=== PATIENT | male | born 1995 | race Hispanic/Latino ===

== ENCOUNTER 2018-12-30 11:46 | Emergency (ER) | payer SELFPAY ==
[2018-12-30] MEDS ORDERED: LORAZEPAM 1 MG TABLET ONE (12:29)
[2018-12-30 12:40] LABS: Absolute Lymphocytes (CBC) 1.9 K/uL (0.7-4.9); Absolute Monocytes 0.8 K/uL (0.1-1.3); Basophils % 0.4 % (0-1.3); Eosinophils % 0.3 % (0-4.4); Lymphocytes % 19.6 % (15.3-44.8); MPV 7.9 fL (7.6-11.3); Monocytes % 8.1 % (3.3-12.3); RBC Red Blood Cell Count 5.08 M/uL (4.33-5.43)
[2018-12-30 12:55] LABS: ALT/SGPT 35 U/L (12-78); AST/SGOT 24 U/L (15-37); Alkaline Phosphatase 107 U/L (45-117); BUN Blood Urea Nitrogen 19 mg/dL (7-18); Bicarbonate 29 mmol/L (21-32); Bilirubin Direct 0.2 mg/dL (0-0.2); Bilirubin Total 0.6 mg/dL (0.2-1.0); Glucose Level 108 mg/dL (74-106); Potassium 3.6 mmol/L (3.5-5.1); Protein, Total 7.8 g/dL (6.4-8.2); Sodium Level 142 mmol/L (136-145); Troponin (Emerg Dept Use Only) < 0.02 ng/mL (0.0-0.045)
--- NOTE | 2018-12-30 13:33 | RAD REPORT ---
EXAM DESCRIPTION: RAD - Chest Single View - 12/30/2018 1:13 pm CLINICAL HISTORY: Left upper quadrant pain COMPARISON: None. TECHNIQUE: AP portable chest image was obtained 1238 hours . FINDINGS: Lungs are clear. Heart and vasculature are normal. No measurable pleural effusion and no p neumothorax. No acute bony abnormality seen. No acute aortic findings suspected. IMPRESSION: No acute cardiopulmonary process.
--- NOTE | 2018-12-30 13:56 | ER ---
Nurse's Notes [facility] Name: Cesario Salinas Age: 23 yrs Sex: Male : 1995 Arrival Date: 12/30/2018 Time: 11:48 Bed 13 Private MD: Diagnosis: Anxiety disorder, unspecified Presentation: 12/30 11:56 Presenting complaint: Patient states: LUQ pain that began 1 week ago, pt also c/o aa5 dizziness and generalized weakness. 11:56 Method Of Arrival: Ambulatory aa5 11:56 Transition of care: patient was not received from another setting of care. Risk aa5 Assessment: Do you want to hurt yourself or someone else? Patient reports no desire to harm self or others. Initial Sepsis Screen: Does the patient meet any 2 criteria? No. Patient's initial sepsis screen is negative. Does the patient have a suspected source of infection? No. Patient's initial sepsis screen is negative. 11:56 Acuity: MATHEUS 3 aa5 11:56 Onset of symptoms was December 2018. aa5 11:56 Care prior to arrival: None. aa5 Triage Assessment: 12:05 General: Appears in no apparent distress. uncomfortable, Behavior is calm, cooperative, hj appropriate for age. Pain: Complains of pain in abdomen. EENT: No signs and/or symptoms were reported regarding the EENT system. Neuro: Level of Consciousness is awake, alert, obeys commands, Oriented to person, place, time, situation, Appropriate for age Reports dizziness, weakness. Cardiovascular: Capillary refill < 3 seconds Patient's skin is warm and dry. Respiratory: Airway is patent Respiratory effort is even, unlabored, Respiratory pattern is regular, symmetrical. GI: Reports lower abdominal pain, upper abdominal pain. : No signs and/or symptoms were reported regarding the genitourinary system. Derm: No signs and/or symptoms reported regarding the dermatologic system. Musculoskeletal: No signs and/or symptoms reported regarding the musculoskeletal system. Historical: - Allergies: 11:56 No Known Allergies; aa5 - Home Meds: 11:56 None [Active]; aa5 - PMHx: 11:56 None; aa5 - PSHx: 11:56 None; aa5 - Immunization history:: Flu vaccine is not up to date. - Social history:: Smoking status: Patient/guardian denies using tobacco. - Ebola Screening: : No symptoms or risks identified at this time. Screenin:00 Abuse screen: Denies threats or abuse. Denies injuries from another. Nutritional hj screening: No deficits noted. Tuberculosis screening: No symptoms or risk factors identified. Fall Risk None identified. Assessment: 12:06 Reassessment: see triage for assessment;. hj Vital Signs: 12:00 BP 113 / 86; Pulse 88; Resp 18; Pulse Ox 99% on R/A; hj 12:03 Temp 98.8(O); Weight 54.43 kg (R); Height 5 ft. 3 in. (160.02 cm) (R); Pain 7/10; aa5 13:56 BP 101 / 70; Pulse 80; Resp 18; Pulse Ox 100% on R/A; hj 12:03 Body Mass Index 21.26 (54.43 kg, 160.02 cm) aa5 ED Course: 11:48 Patient arrived in ED. as 11:50 Hayley Lopez FNP-C is PHCP. kb 11:50 Nicholas Bass MD is Attending Physician. kb 11:56 Caden Hodges RN is Primary Nurse. hj 11:56 Arm band placed on Patient placed in an exam room, on a stretcher. aa5 12:01 Patient has correct armband on for positive identification. Placed in gown. Bed in low hj position. Call light in reach. Side rails up X 1. Adult w/ patient. 12:02 Triage completed. aa5 12:16 EKG done, by pharmacy picking technician. reviewed by Hayley LINN. at1 12:25 Initial lab(s) drawn, by nc, sent to lab. Inserted saline lock: 20 gauge in right hj antecubital area, using aseptic technique. Blood collected. 13:13 XRAY Chest (1 view) In Process Unspecified. EDMS 13:56 No provider procedures requiring assistance completed. IV discontinued, intact, hj bleeding controlled, No redness/swelling at site. Pressure dressing applied. Administered Medications: 12:14 Drug: Ativan 1 mg Route: PO; hj 12:26 Follow up: Response: No adverse reaction; Anxiety decreased hj Outcome: 13:55 Discharge ordered by . kb 13:57 Discharged to home ambulatory. hj 13:57 Condition: stable 13:57 Discharge instructions given to patient, family, Instructed on discharge instructions, follow up and referral plans. medication usage, Demonstrated understanding of instructions, follow-up care, medications, Prescriptions given X 1. 14:04 Patient left the ED. hj Signatures: Dispatcher [employer] EDHayley Snow, CONSERVATION TECHNICIAN-C CONSERVATION TECHNICIAN-Trudy Allan Audri, RN RN aa5 Evon Bach, heel buffer EKG Tat1 Caden Hodges RN RN hj Corrections: (The following items were deleted from the chart) 12:07 12:05 Neuro: Level of Consciousness is awake, alert, obeys commands, Oriented to hj person, place, time, situation, Appropriate for age hj 12:07 12:05 GI: No signs and/or symptoms were reported involving the gastrointestinal system. hj hj 14:04 13:57 Discharge instructions given to patient, family, Instructed on discharge hj instructions, follow up and referral plans. Demonstrated understanding of instructions, follow-up care, hj
--- NOTE | 2018-12-30 13:56 | EDPHYS ---
Physician Documentation [facility] Name: Cesario Salinas Age: 23 yrs Sex: Male : 1995 Arrival Date: 12/30/2018 Time: 11:48 Bed 13 Private MD: ED Physician Nicholas Bass HPI: 12/30 13:10 This 23 yrs old Male presents to ER via Ambulatory with complaints of kb Dizziness, Weakness, Abdominal Pain. 13:10 The patient presents with generalized weakness. Onset: The symptoms/episode kb began/occurred 1 week(s) ago. Context: occurred at home. Modifying factors: The symptoms are alleviated by nothing, the symptoms are aggravated by nothing. Associated signs and symptoms: Pertinent positives: chest pain, fatigue. Severity of symptoms: At their worst the symptoms were moderate in the emergency department the symptoms are unchanged. Patient's baseline: Neuro: alert and fully oriented, Motor: no deficits, Ambulation: walks without assistance, Speech: normal. The patient has not experienced similar symptoms in the past. The patient has not recently seen a physician. Pt reports fatigue and weakness with chest pain for a week. reports chest pain comes on when he is anxious. Pt appears very anxious, tearful during exam. Historical: - Allergies: 11:56 No Known Allergies; aa5 - Home Meds: 11:56 None [Active]; aa5 - PMHx: 11:56 None; aa5 - PSHx: 11:56 None; aa5 - Immunization history:: Flu vaccine is not up to date. - Social history:: Smoking status: Patient/guardian denies using tobacco. - Ebola Screening: : No symptoms or risks identified at this time. ROS: 13:04 Neck: Negative for injury, pain, and swelling, Respiratory: Negative for shortness of kb breath, cough, wheezing, and pleuritic chest pain, Abdomen/GI: Negative for abdominal pain, nausea, vomiting, diarrhea, and constipation, Back: Negative for injury and pain, : Negative for injury, bleeding, discharge, and swelling, MS/Extremity: Negative for injury and deformity, Skin: Negative for injury, rash, and discoloration. 13:04 Constitutional: Positive for fatigue, Negative for body aches, chills, fever, malaise, poor PO intake, weight loss. 13:04 Cardiovascular: Positive for chest pain, Negative for edema, orthopnea, palpitations, paroxysmal nocturnal dyspnea. 13:04 Neuro: Positive for weakness. Exam: 13:10 Head/Face: Normocephalic, atraumatic. ENT: Nares patent. No nasal discharge, no kb septal abnormalities noted. Tympanic membranes are normal and external auditory canals are clear. Oropharynx with no redness, swelling, or masses, exudates, or evidence of obstruction, uvula midline. Mucous membranes moist. Neck: Trachea midline, no thyromegaly or masses palpated, and no cervical lymphadenopathy. Supple, full range of motion without nuchal rigidity, or vertebral point tenderness. No Meningismus. Chest/axilla: Normal chest wall appearance and motion. Nontender with no deformity. No lesions are appreciated. Cardiovascular: Regular rate and rhythm with a normal S1 and S2. No gallops, murmurs, or rubs. Normal PMI, no JVD. No pulse deficits. Respiratory: Lungs have equal breath sounds bilaterally, clear to auscultation and percussion. No rales, rhonchi or wheezes noted. No increased work of breathing, no retractions or nasal flaring. Abdomen/GI: Soft, non-tender, with normal bowel sounds. No distension or tympany. No guarding or rebound. No evidence of tenderness throughout. Skin: Warm, dry with normal turgor. Normal color with no rashes, no lesions, and no evidence of cellulitis. MS/ Extremity: Pulses equal, no cyanosis. Neurovascular intact. Full, normal range of motion. Neuro: Awake and alert, GCS 15, oriented to person, place, time, and situation. Cranial nerves II-XII grossly intact. Motor strength 5/5 in all extremities. Sensory grossly intact. Cerebellar exam normal. Normal gait. 13:10 Constitutional: The patient appears alert, awake, anxious. 13:10 Psych: Behavior/mood is cooperative, anxious, Affect is animated. Vital Signs: 12:00 BP 113 / 86; Pulse 88; Resp 18; Pulse Ox 99% on R/A; hj 12:03 Temp 98.8(O); Weight 54.43 kg (R); Height 5 ft. 3 in. (160.02 cm) (R); Pain 7/10; aa5 13:56 BP 101 / 70; Pulse 80; Resp 18; Pulse Ox 100% on R/A; hj 12:03 Body Mass Index 21.26 (54.43 kg, 160.02 cm) aa5 MDM: 11:59 Patient medically screened. kb 13:02 Data reviewed: vital signs, nurses notes. Data interpreted: Pulse oximetry: on room air kb is 99 %. Interpretation: normal. 13:39 Counseling: I had a detailed discussion with the patient and/or guardian regarding: the kb historical points, exam findings, and any diagnostic results supporting the discharge/admit diagnosis, lab results, radiology results, the need for outpatient follow up, a family practitioner, to return to the emergency department if symptoms worsen or persist or if there are any questions or concerns that arise at home. 12/30 12:13 Order name: Basic Metabolic Panel; Complete Time: 12:58 kb 12/30 12:13 Order name: CBC with Diff; Complete Time: 12:41 kb 12/30 12:13 Order name: LFT's; Complete Time: 12:58 kb 12/30 12:13 Order name: Magnesium; Complete Time: 12:58 kb 12/30 12:13 Order name: Troponin (emerg Dept Use Only); Complete Time: 12:58 kb 12/30 12:13 Order name: XRAY Chest (1 view); Complete Time: 13:35 kb 12/30 12:13 Order name: EKG; Complete Time: 12:15 kb 12/30 12:13 Order name: Cardiac monitoring; Complete Time: 12:14 kb 12/30 12:13 Order name: EKG - Nurse/Tech; Complete Time: 12:14 kb 12/30 12:13 Order name: IV Saline Lock; Complete Time: 12:26 kb 12/30 12:13 Order name: Labs collected and sent; Complete Time: 12:27 kb 12/30 12:13 Order name: O2 Per Protocol; Complete Time: 12:14 kb 12/30 12:13 Order name: O2 Sat Monitoring; Complete Time: 12:15 kb Administered Medications: 12:14 Drug: Ativan 1 mg Route: PO; hj 12:26 Follow up: Response: No adverse reaction; Anxiety decreased hj Disposition: 12/31 08:13 Co-signature as Attending Physician, Nicholas Bass MD I agree with the assessment and nhan plan of care. Disposition: 12/30/18 13:55 Discharged to Home. Impression: Anxiety disorder, unspecified. - Condition is Stable. - Discharge Instructions: Panic Attacks, [id number]. - Prescriptions for Hydroxyzine HCl 25 mg Oral Tablet - take 1 tablet by ORAL route once daily As needed; 12 tablet. - Medication Reconciliation Form, Thank You Letter, Antibiotic Education, Prescription Opioid Use form. - Follow up: Private Physician; When: 2 - 3 days; Reason: Recheck today's complaints, Continuance of care, Re-evaluation by your physician. Follow up: Emergency Department; When: As needed; Reason: Worsening of condition. Signatures: Dispatcher [employer] EDMS Hayley Lopez, TAPE EDGE MACHINE OPERATOR-C TAPE EDGE MACHINE OPERATOR-Nicholas Sabillon MD MD cha Calderon, Audri, RN RN aa5 Caden Hodges RN RN hj Corrections: (The following items were deleted from the chart) 12/30 14:04 13:55 12/30/2018 13:55 Discharged to Home. Impression: Anxiety disorder, unspecified. hj Condition is Stable. Discharge Instructions: Panic Attacks, [id number]. Prescriptions for Hydroxyzine HCl 25 mg Oral Tablet - take 1 tablet by ORAL route once daily As needed; 12 tablet. and Forms are Medication Reconciliation Form, Thank You Letter, Antibiotic Education, Prescription Opioid Use. Follow up: Private Physician; When: 2 - 3 days; Reason: Recheck today's complaints, Continuance of care, Re-evaluation by your physician. Follow up: Emergency Department; When: As needed; Reason: Worsening of condition. kb
--- NOTE | 2018-12-30 18:24 | EKG ---
Test Date: 2018-12-30 Test Time: 12:16:40 [employer] Manager: BRYANT MEASUREMENT RESULTS: Intervals: Rate: 87 GA: 150 QRSD: 88 QT: 380 QTc: 457 Jackson: P: 83 GA: 150 QRS: 77 T: 76 INTERPRETIVE STATEMENTS: Normal sinus rhythm Normal ECG No previous ECG available for comparison Electronically Signed On 12-30-18 18:23:24 CDT by Tres Morris
== END 2018-12-30 14:04 | disposition home or self-care (01) ==
LOC: ER 11:46
DX: F41.9 Anxiety disorder, unspecified (principal)
CPT/HCPCS: 36415; 71045; 80048; 80076; 83735; 84484; 85025; 93005; 99284